=== PATIENT | female | born 1945 | race Caucasian/White ===

== ENCOUNTER → 2017-09-12 | Outpatient (CLI) | payer OTHER | LOC: RAD 12:59 | DX: R92.1 Mammographic calcification found on diagnostic imaging of breast (principal) ==

== ENCOUNTER → 2019-03-07 | Outpatient (CLI) | payer OTHER ==
[~2019-03-07] VITALS: Ht 157.5 cm; Wt 56.7 kg
[~2019-03-07] MED LIST: AMBIEN 5 MG TABL5 M1 PO; AMITRIPTYLINE H25 M2 PO; CALCIUM 500 +1 EAC5 PO; FOLIC ACID1 MG PO; LISINOPRIL-HCT1 EAC2 PO; METHOTREXATE 22.5 MG PO; NATURAL LUTEIN20 MG PO; SIMVASTATIN80 MG PO; TOPROL XL100 MG PO
--- NOTE | ~2019-03-07 | P ---
[facility] [place] [address] PROCEDURE REPORT Name: MYRNAMELANIGary CEDILLO Room #: REG [facility].#: [id number] Admission: 03/07/19 ������������������ Attend Phys: Rick Marti MD Discharge: ������������������ Date of : 41 Report #: [id number] THIS REPORT FOR: //name// CC: Rick Goodson OUTPATIENT COLONOSCOPY REPORT BRIEF HISTORY: The patient is a 73-year-old woman with a history of multiple colon adenomas. She previously has had 16 adenomas removed over time. She also has a history of breast cancer and had chemotherapy last year and had several episodes of colon infection per her report and she also reports what sounds like an episode of diverticular abscess that was managed nonsurgically. She presents for high-risk screening colonoscopy due to her history of adenomas and also due to history of colon infections and diverticulitis. PREOPERATIVE DIAGNOSIS: High-risk screening colonoscopy. POSTOPERATIVE DIAGNOSES: 1. Colon polyps. 2. Moderately severe diverticulosis coli, left colon. MEDICATIONS: Deep sedation with propofol per anesthesia. SPECIMENS: 1. Diminutive polyp, proximal transverse colon. 2. 5-6 mm flat polyp, distal transverse colon. ESTIMATED BLOOD LOSS: 3 mL. PROCEDURE: Colonoscopy to cecum and terminal ileum with snare polypectomy and biopsy. FINDINGS: Prior to propofol sedation, the procedure of colonoscopy discussed with the patient as well as potential risks and its complications. She indicates she understands and desires to proceed. DESCRIPTION OF PROCEDURE: With the patient in left lateral decubitus position, digital examination was completed, which revealed no abnormalities. Subsequently, the Olympus video colonoscope was introduced in the rectum, advanced under direct vision to the cecum. Done with minimal difficulty. The cecum was identified by the ileocecal valve and the appendiceal orifice. I was able to advance the scope across the ileocecal valve and visualize the distal segment of the terminal ileum, which was inspected and noted to be unremarkable. At that point, the scope was slowly withdrawn and careful circumferential views were obtained including retroflexing the scope in the ascending colon. Upon [facility] [address] [address] PROCEDURE REPORT Name: TERESE NORRIS Room #: REG [facility] Autumn.#: [id number] Admission: 03/07/19 ������������������ Attend Phys: Rick Marti MD Discharge: ������������������ Date of : 43 Report #: [id number] slow withdrawal of the scope, the prep was excellent. The mucosa was within normal limits, normal vascular pattern, normal light reflex. As we withdrew the scope, no abnormalities were noted until the proximal transverse colon was reached, at which point a diminutive polyp was seen and removed with biopsy forceps. The scope was further withdrawn and a flat 5-6 mm polyp in the distal transverse colon was seen and removed by cold snare polypectomy. Upon further withdrawal of the scope, no additional neoplastic lesions were seen. In the sigmoid colon, there was moderately severe diverticular disease without endoscopic evidence of diverticulitis. The scope was further withdrawn. No additional abnormalities were seen. Scope was withdrawn in the rectum. Upon retroflexion, small hemorrhoids were seen. Scope was withdrawn. The patient tolerated the procedure well. CONDITION OF THE PATIENT UPON DISCHARGE: Following procedure, the patient drowsy, aroused, conversant and will be discharged home when fully ambulatory. INSTRUCTIONS TO THE PATIENT AND FAMILY AT THE TIME OF DISCHARGE: We will follow up on the pathology for polyps. Lifetime polyp count to date is 16. I suspect these are both adenomas, which will increase her count to 18. She does have a history of breast cancer, but reports there is nothing unusual with regards to genetics regarding her breast cancer. There is no family history of colon cancer. She will otherwise follow up with Dr. Cathy Goodson and also Dr. Clif Barahona. ��������������������������������������������� ���������������������������������������� By: ��������������������������������������������� 0824 [id number] Rick Marti MD /nt
--- NOTE | 2019-03-10 16:05 | PATH ---
[facility] [address] [place] [address] PATHOLOGY RPT PROCEDURE Name: TERESE NORRIS Room #: REG Gregor Grajeda#: [id number] ������������������ Admission: 03/07/19 ������������������ Date of : 43 Discharge: Report #: [id number] Path Case #: [id number] [facility] Accession Number: [id number] . 01 Material submitted: . PART A: colon - BX POLYP AT PROXIMAL TRANSVERSE COLON. Modifiers: transverse, proximal PART B: colon - POLYP AT DISTAL TRANSVERSE COLON. Modifiers: transverse, distal . 01 Clinical history: . Pre-OP DX: Hx polyps, diverticulitis Post-OP DX: Diverticulosis, colon polyps . 02 Diagnosis: A. Polyp, at proximal transverse colon, endoscopic biopsy: - Tubular adenoma. - Negative for high-grade dysplasia. . B. Polyp, at distal transverse colon, endoscopic biopsy: - Tubular adenoma. - Negative for high-grade dysplasia. (IUV:pit 03/10/2019) QTP/03/10/2019 . 02 Electronically signed: . Kathy Dyson MD, Pathologist NPI- [id number] . 01 Gross description: . A. Received in formalin labeled "Terese Norris, BX polyp proximal transverse colon," is a single segment of carreno soft tissue measuring 0.5 cm in maximum dimension. The specimen is entirely submitted in cassette A1. . B. Received in formalin labeled "Terese Norris, polyp at distal transverse colon," is a single segment of carreno soft tissue measuring 0.9 cm in maximum dimension. The specimen is entirely submitted in cassette B1. (TSD; 03/07/2019) TOB/TOB . 02 Pathologist provided ICD-10: D12.3 . 02 CPT . 506077, 617657 Specimen Comment: A courtesy copy of this report has been sent to Specimen Comment: [phone], [place] [address] PATHOLOGY RPT PROCEDURE Name: TERESE NORRIS MONROE Room #: REG Gregor Grajeda#: [id number] ������������������ Admission: 03/07/19 ������������������ Date of : 43 Discharge: Report #: [id number] Path Case #: [id number] Specimen Comment: Report sent to / DR SABILLON Performed at: [address], [place], [place] [id number] MD Jeevan Villareal MD Phone: [phone] Performed at: [address] [id number] MD Kathy Dyson MD Phone: [phone]
== END | disposition home or self-care (01) ==
LOC: GI 06:27
DX: Z12.11 Encounter for screening for malignant neoplasm of colon (principal); Z86.010 Personal history of colon polyps; D12.3 Benign neoplasm of transverse colon; K57.30 Diverticulosis of large intestine without perforation or abscess without bleeding; I10 Essential (primary) hypertension; E78.5 Hyperlipidemia, unspecified; M06.9 Rheumatoid arthritis, unspecified; Z98.890 Other specified postprocedural states; Z87.891 Personal history of nicotine dependence; Z85.3 Personal history of malignant neoplasm of breast; Z79.899 Other long term (current) drug therapy
CPT/HCPCS: 62110; 62900

== ENCOUNTER → 2019-04-24 | Outpatient (CLI) | payer OTHER | LOC: MRI 09:29 | DX: M47.27 Other spondylosis with radiculopathy, lumbosacral region (principal); M51.17 Intervertebral disc disorders with radiculopathy, lumbosacral region; M51.16 Intervertebral disc disorders with radiculopathy, lumbar region ==

== ENCOUNTER → 2019-05-13 | Outpatient (CLI) | payer OTHER ==
[~2019-05-13] VITALS: Ht 154.9 cm; Wt 58.2 kg
[~2019-05-13] MED LIST changes: +ACETAMINOPHEN325 M1 PO; +ANASTROZOLE1 MG PO
[2019-05-13 10:33] VITALS: BP 125/76
--- NOTE | 2019-05-13 10:48 | NUR ---
Pain Clinic Assessment: 1. History of Osteoarthritis: B/L HANDS History of Rheumatoid Arthritis: B/L HANDS B/L FEET B/L SHOULDERS B/L KNEES 2. Height: 5 ft. 1 in. 154.9 cm. Weight: 128.4 lb. oz. 58.242 kg. Patient's BMI: 24.3 3. Vital Signs: BP: 125/76 Pulse: 71 Resp: 14 Temp: 02 Sat: 99 ECG Mon: 4. Pain Intensity: 6 5. Fall Risk: Dizziness: N Needs help standing or walking: N Fallen in the last 3 months: Y Fall risk comments: 6. Patient on Blood Thinner: None 7. History of Hypertension: Y 8. Opioid Therapy greater than 6 weeks: Opiate Contract Signed: 9. Risk Assessment Tool Provided: LOW RISK 10. Functional Assessment Tool: 11. Recreational Drug Use: Never Drug Type: Tobacco Use: Never Smoker Tobacco Type: Amount or Packs/day: How Many Years: Alcohol Use: No Frequency: Quant:
--- NOTE | 2019-05-20 08:12 | HPC ---
[facility] [address] [place] [address] PAIN MANAGEMENT CONSULTATION Name: TERESE NORRISZABETH Room #: REG [facility] Taras#: [id number] Admission: 05/13/19 ������������������ Attend Phys: Sunil Quershi DO Discharge: ������������������ Date of : 43 Report #: [id number] THIS REPORT FOR: //name// CC: Sunil Goodson DATE OF SERVICE: 05/13/2019 REFERRING PHYSICIAN: Yinka Calderon M.D. CHIEF COMPLAINT: Thoracolumbar pain. HISTORY OF PRESENT ILLNESS: As you know, the patient is a 73-year-old female who reports an acute onset of thoracolumbar pain beginning 10/12/2018. She is unable to provide any type of injury or trauma that may have led to symptom occurrence. She states her pain has progressively worsened. She trialed [id number] medications, stretching and rest and relaxation, believing her symptoms would improve spontaneously. When symptoms did not improve, she discussed further with her PCP her symptoms. They trialed conservative treatments, medication management, even physician-directed home physical therapy. Unfortunately, this did not seem to improve the patient's overall pain. She ultimately underwent MRI of the thoracic spine, which showed changes in the thoracolumbar area, consistent with the distribution of symptoms. She has no lumbar radicular component to her symptom presentation today. Presentation does appear to be along the thoracic distribution of approximately T10 on the left. She has been referred to our clinic to discuss options for treatment for this pain generator. The patient indicates pain is continuous, describes the pain as burning, cramping, aching, pulling, numbness and tingling. Places current pain score 6/10, daily average at 5-8/10 and the worst the pain has been is 8/10. The patient states standing, walking and doing certain activities exacerbate symptoms; sitting and lying down tends to improve pain. She has been referred to our service to discuss treatment options for suspected radiculopathy. PAST MEDICAL HISTORY: 1. Hypertension. 2. Chronic colon problems. 3. History of breast cancer. 4. Chronic sinus problems. 5. Insomnia. 6. Dyslipidemia. 7. Rheumatoid arthritis. PAST SURGICAL HISTORY: [facility] [address] [place] [address] PAIN MANAGEMENT CONSULTATION Name: TERESE NORRIS NGUYEN Room #: REG [facility].#: [id number] Admission: 05/13/19 ������������������ Attend Phys: Sunil Qureshi DO Discharge: ������������������ Date of : 43 Report #: [id number] 1. Sinus surgery x 3. 2. Right breast lumpectomy. SOCIAL HISTORY: The patient denies tobacco, IV or illicit drug use. Admits to 2 alcoholic beverages per day. She is retired, retired years ago. She is not receiving workmen's compensation nor is she trying to obtain disability benefits. She is unaccompanied at today's visit. REVIEW OF SYSTEMS: Positive for wearing corrective eyewear, rash and itching, left chest wall pain, left mid back pain, rheumatoid arthritis and hypertension. All other review of systems negative per 12-point review of systems, other than those listed in the history of present illness. Pain impact score 14 of 70, indicating mild interference with daily activities secondary to pain. ALLERGIES: No known drug allergies. CURRENT MEDICATIONS: Acetaminophen 325 mg 4 times a day; anastrozole 1 mg once a day; Lutein 20 mg once a day; methotrexate 2.5 mg, 15 mg per week; folic acid 1 mg per day; amitriptyline 25 mg p.o. at bedtime; simvastatin 80 mg per day; lisinopril/hydrochlorothiazide 20/25 one tab per day; metoprolol 100 mg per day and zolpidem 5 mg p.r.n. at bedtime. IMAGING DATA: MRI of the lumbar spine obtained 04/24/2019 shows diffuse spondylosis and disk space narrowing noted in the thoracolumbar area. There is a left paracentral disk protrusion at T9-T10, without significant overall central canal impingement. It does cause minimal left foraminal stenosis with broad-based disk protrusion at L1-L2, mild on the right, minimal left; moderate posterior facet degenerative changes noted at L3-L4; minimal disk bulging at L4-L5; posterior facet arthropathy changes and no impingement seen on the canal. There is neural foraminal stenosis at this level, classifies mild to moderate; moderate facet arthropathy change and moderate bilateral neural foraminal stenosis at L5-S1. PQRS REVIEW: The patient has known osteoarthritic changes of the bilateral hands. She is suffering from rheumatoid arthritis involving hands, feet, shoulders, knees and hips. The patient is placing pain score at 6/10. She is not a fall risk, but has recently had a fall apparently tripping over objects at home. She has rectified this problem by cleaning pathways. She is not on blood thinners, but is treated for hypertension. She is not on any chronic opioids. She has a reported low opioid addiction based on our addiction potential protocol. She is placing pain impact score of 14/70, mild interference with daily activities secondary to pain. PHYSICAL EXAMINATION: [facility] [address] [place] [address] PAIN MANAGEMENT CONSULTATION Name: TERESE NORRIS Room #: REG MARCIAL Grajeda#: [id number] Admission: 05/13/19 ������������������ Attend Phys: Sunil Qureshi DO Discharge: ������������������ Date of : 43 Report #: [id number] VITAL SIGNS: Blood pressure 125/76, pulse 71 and respiratory rate 14 and unlabored. The patient is 99% on room air. Height 5 feet 1 inch tall, weight 128.4 pounds and BMI calculated 24.3. GENERAL: Well-developed, well-nourished and well-hydrated 73-year-old female, appearing her stated age. Pain is rated around 6/10. HEENT: Normocephalic, atraumatic. Pupils equal, round and reactive to light. Extraocular muscles are intact. Sclerae nonicteric, without injection. NEUROLOGIC: Cranial nerves 2-12 are grossly intact. Speech fluent. The patient deemed a good historian. LUNGS: Clear. No wheezes, rhonchi or rales. CARDIOVASCULAR: Regular. No appreciable gallop. No rub. ABDOMEN: Soft, nontender and nondistended. Normoactive bowel sounds. EXTREMITIES: Show no clubbing, no cyanosis and no edema. There are mild gross deformities of the hands noted on physical exam. MUSCULOSKELETAL: The patient has palpatory tenderness over the thoracolumbar area. Deep palpation of the area causes slight intensification of pain with more rightward positioning. Deep inhalation and exhalation is causing no change in overall pain. Seated straight leg raising negative. Supine straight leg raising negative. Karla's test negative. Modified Gaenslen's positive for axial low back pain. Ankle clonus negative. Babinski is negative. She is intact to light touch from T1 through T12 and L1 through S1 dermatomes. There are no rashes, lesions, or ulcerations overlying the distribution of pain, concerning of herpes zoster. Provocation testing such as extension, rotation and lateral flexion do not seem to change overall pain. ASSESSMENT: 1. Thoracic radiculopathy. 2. Displacement of the thoracic disk. 3. Facet arthropathy of the lumbar spine. 4. Lumbosacral spondylosis, without radicular symptoms. 5. Chronic intractable pain. PLAN: 1. Based on today's physical exam, history the patient has provided, the description the patient uses in regards to pain as well as location of symptoms radiating to what appears to be the T10 dermatome on the left leg, source of the patient's pain is thoracic radiculopathy. The patient and I discussed at length today treatment options for thoracic radiculopathy. The treatment options would include the following: We discussed physical therapy, stretching exercise and core strengthening as a treatment course. This will improve the patient's overall mobility and potentially improve overall pain. We discussed medication management, utilizing escalating doses of neuropathic pain medication to attempt to control symptoms. We would have to watch for side effects of this medication, including somnolence, decrease in mental acuity, disorientation, [place] [address] PAIN MANAGEMENT CONSULTATION Name: MYRNASWAPNILJNO CEDILLO Room #: REG MARCIAL Grajeda#: [id number] Admission: 05/13/19 ������������������ Attend Phys: Sunil Qureshi DO Discharge: ������������������ Date of : 43 Report #: [id number] slowing. We discussed the requested epidural injection to address thoracic radiculopathy. We also discussed surgical options. After reviewing risks and benefits of all proposed treatment options, the patient chose to begin with a thoracic epidural injection. The patient has been advised of the risks and benefits of a thoracic epidural injection. These risks include, but are not necessarily limited to bleeding, bruising, infection, worsening pain, no relief of pain, also risk of temporary or permanent muscle weakness, temporary or permanent nerve damage, possible paralysis, post-dural puncture headache osteoporotic changes and . The patient states understood and wished to proceed. 2. No medication changes made at today's visit. The patient will continue current medical therapy as prescribed by her PCP. 3. We will see the patient back in followup visit in approximately one month. At that time, we will review the efficacy of today's thoracic epidural injection and determine if the next in the series might be recommended. We wish to thank Dr. Calderon for the referral of the patient to our clinic. We will keep you apprised of her response to treatment as we address thoracic radiculopathy. Again, we wish to thank you for the opportunity to see the patient in consultation. PROCEDURE NOTE PROCEDURE: Thoracic epidural injection under fluoroscopic guidance. DESCRIPTION OF PROCEDURE: After obtaining written consent, the patient was taken back to the fluoroscopy suite, placed in a prone position with a pillow under the thoracolumbar junction to improve thoracic kyphosis and reduce the lumbar lordosis. Skin overlying the lumbosacral area was then prepped and draped in aseptic fashion. A 27-gauge 1-1/4 inch needle was then used to anesthetize the skin and subcutaneous tissue directly overlying the site of injection. A 20-gauge 3-1/2 inch Tuohy needle was advanced under fluoroscopic guidance towards the epidural space using a left paramedian approach. Epidural space was identified using loss of resistance to air technique. After negative aspiration for heme or cerebrospinal fluid, 1 mL of Omnipaque injected. A thoracic epidurogram was confirmed using both AP and lateral fluoroscopy. After negative aspiration for heme or cerebrospinal fluid, 5 mL of a solution containing 2 mL 40 mg per mL, 80 mg total triamcinolone along with 3 mL of 1% lidocaine was injected slowly. Needle then retracted shelter, flushed with 1 mL of 1% lidocaine and then removed. Sterile bandage placed over the injection site. No new motor deficits present in the lower extremities following the procedure. [facility] [address] [place] [address] PAIN MANAGEMENT CONSULTATION Name: TERESE NORRIS Room #: REG CLGregor Grajeda#: [id number] Admission: 05/13/19 ������������������ Attend Phys: Sunil Qureshi DO Discharge: ������������������ Date of : 43 Report #: [id number] The patient tolerated the procedure well, carefully escorted to recovery room in stable condition. No apparent complications. After meeting discharge criteria, the patient discharged home. ��������������������������������������������� <ELECTRONICALLY SIGNED> ���������������������������������������� By: Sunil Qureshi DO ��������������������������������������������� 05/20/19 0812 1035 [id number] Sunil Qureshi DO /nt
--- NOTE | 2019-05-27 07:48 | HPC ---
[facility] [address] [place] [address] PAIN MANAGEMENT CONSULTATION Name: MYRNATERESE GARCIAZABETH Room #: REG [facility] Autumn.#: [id number] Admission: 05/13/19 ������������������ Attend Phys: Sunil Qureshi DO Discharge: ������������������ Date of : 41 Report #: [id number] THIS REPORT FOR: //name// CC: Sunil Goodson DATE OF SERVICE: 05/13/2019 CHIEF COMPLAINT: Thoracolumbar pain. HISTORY OF PRESENT ILLNESS: As you know, the patient is a 73-year-old female who reports acute onset of thoracic and lumbar pain that began on 10/12/2018. The patient is unable to provide any injury or trauma that may have led to symptom occurrence. She states her pain has progressively worsened. She trialed conservative treatment initially, trying [id number] medications, rest, relaxation and some light stretching. Unfortunately, this did not improve the patient's pain. She sought further evaluation through her primary care physician who DICTATION ENDS HERE ��������������������������������������������� <ELECTRONICALLY SIGNED> ���������������������������������������� By: Sunil Qureshi DO ��������������������������������������������� 05/27/19 0748 1023 1101 Sunil Qureshi DO /nt
== END | disposition home or self-care (01) ==
LOC: PAIN 06:56
DX: M51.14 Intervertebral disc disorders with radiculopathy, thoracic region (principal); M47.26 Other spondylosis with radiculopathy, lumbar region; M47.817 Spondylosis without myelopathy or radiculopathy, lumbosacral region; G89.29 Other chronic pain

== ENCOUNTER → 2019-07-08 | Outpatient (CLI) | payer OTHER ==
[~2019-07-08] VITALS: Ht 154.9 cm; Wt 57.8 kg
[2019-07-08 10:08] VITALS: BP 123/67
--- NOTE | 2019-07-08 10:20 | NUR ---
Pain Clinic Assessment: 1. History of Osteoarthritis: B/L HANDS History of Rheumatoid Arthritis: B/L HANDS B/L FEET B/L SHOULDERS B/L KNEES 2. Height: 5 ft. 1 in. 154.9 cm. Weight: 127.4 lb. oz. 57.788 kg. Patient's BMI: 24.1 3. Vital Signs: BP: 123/67 Pulse: 73 Resp: 14 Temp: 02 Sat: 100 ECG Mon: 4. Pain Intensity: 5 5. Fall Risk: Dizziness: N Needs help standing or walking: N Fallen in the last 3 months: N Fall risk comments: 6. Patient on Blood Thinner: None 7. History of Hypertension: Y 8. Opioid Therapy greater than 6 weeks: Y Opiate Contract Signed: 9. Risk Assessment Tool Provided: LOW RISK 10. Functional Assessment Tool: 11. Recreational Drug Use: Never Drug Type: Tobacco Use: Never Smoker Tobacco Type: Amount or Packs/day: How Many Years: Alcohol Use: No Frequency: Quant:
--- NOTE | 2019-07-15 11:15 | HPC ---
[facility] [place] [address] PAIN MANAGEMENT CONSULTATION Name: TERESE NORRIS [facility] #: [facility] [id number] Admission: 07/08/19 Attend Phys: Sunil Qureshi DO Discharge: Date of : 41 Report #: [id number] THIS REPORT FOR: //name// CC: Sunil Goodson DATE OF SERVICE: 07/08/2019 CHIEF COMPLAINT: Thoracolumbar pain. HISTORY OF PRESENT ILLNESS: As you know, the patient is a 74-year-old female who reports acute onset of thoracolumbar pain beginning 10/12/2018. She denied any injury or trauma that may have led to symptom development. She was seen in consultation per the request of Dr. Calderon to undergo thoracic epidural injection under fluoroscopic guidance. She underwent the first in a series of thoracic epidural injection 05/13/2019. She returns today in followup visit with recurrence of pain, denying any new injury or trauma that may have led to symptoms recurrence. She is placing pain score 5/10. Previous injection according to the patient provided 80% improvement in overall pain. She returns today to build on success of previous intervention. The patient indicates today pain is continuous, burning, cramping, aching, pulling, tingling; exacerbated with sitting and standing, improves with activities and recent thoracic epidural injection. Pain rated at 5/10. ALLERGIES: No known drug allergies. CURRENT MEDICATIONS: Zolpidem, metoprolol, lisinopril, hydrochlorothiazide, simvastatin, amitriptyline, folic acid, methotrexate, Lutein, anastrozole and Tylenol. SOCIAL HISTORY: The patient denies tobacco, alcohol, IV or illicit drug use. She is retired. She is unaccompanied today. IMAGING: No new imaging available. PQRS: The patient has known osteoarthritic changes of the bilateral hands, mild in the shoulders. She is suffering from rheumatoid arthritis involving the hands, feet, shoulders and knees. She is placing pain intensity 5/10. She is not a fall risk, has not had a fall in last 3 months. She is not on blood thinners, but is treated for hypertension. She is on chronic opioids with a low opioid addiction potential. Pain impact score 14 of 70, mild interference of daily activities secondary to pain. PHYSICAL EXAMINATION: VITAL SIGNS: Blood pressure 123/67, pulse 73, respiratory rate 14 and [facility] [address] [address] PAIN MANAGEMENT CONSULTATION Name: TERESE NORRIS [facility] #[facility] [id number] Admission: 07/08/19 Attend Phys: Sunil Qureshi DO Discharge: Date of : 43 Report #: [id number] unlabored. The patient is 100% on room air. Height 5 feet 1 inch tall, weight 127.4 pounds, BMI calculated 24.1. GENERAL: Well-developed, well-nourished, well-hydrated, 74-year-old female appearing stated age, pain is rated today 5/10. HEENT: Normocephalic, atraumatic. Pupils equal, round, reactive to light. EXTREMITIES: Show no clubbing, no cyanosis, and no edema. MUSCULOSKELETAL: Upper extremity strength symmetrical 5/5 as is lower extremity strength 5/5. Deconditioning noted bilaterally. Deep inhalation and exhalation causes no change in overall pain. Deep palpation over the thoracolumbar area causes slight intensification of pain with what appears to be rightward distribution of symptoms. She is intact to light touch from T1-T12 dermatomes, again from L1 through S2 dermatomes. ASSESSMENT: 1. Thoracic radiculopathy. 2. Displacement of thoracic intervertebral disk. 3. Facet arthropathy of the thoracolumbar spine. 4. Lumbosacral spondylosis without radicular symptoms. 5. Chronic intractable pain. PLAN: 1. The patient has returned today in followup visit having noted 80% improvement in overall pain with the thoracic epidural injection provided at last visit. Unfortunately, her symptoms have begun to return. She is now placing pain score 5/10. She returns today to undergo next in the series of thoracic epidural injections in hopes of building on success of previous intervention. The patient has been advised risks and benefits of the procedure, states understood, and wished to proceed. 2. No medication changes made at today's visit. The patient will continue current medical therapy as previously prescribed. 3. We will see the patient back in followup visit on an as needed basis for possible next in the series of thoracic epidural injections. PROCEDURE NOTE DESCRIPTION OF PROCEDURE: T8-T9 thoracic epidural injection under fluoroscopic guidance. After obtaining written consent, the patient was taken back to fluoroscopy suite, placed in prone position with pillow under the thoracolumbar junction to improve thoracic kyphosis and reduce lumbar lordosis. Skin overlying the lumbosacral area then prepped and draped in aseptic fashion. A 27-gauge 1-1/4 inch needle was then used to anesthetize skin and subcutaneous tissue with 2 mL of 1% lidocaine. A 20-gauge 3-1/2 inch Tuohy needle advanced under fluoroscopic guidance towards [address] [address] PAIN MANAGEMENT CONSULTATION Name: TERESE NORRIS Room #: REG MARCIAL Grajeda#: [id number] Admission: 07/08/19 Attend Phys: Sunil Qureshi DO Discharge: Date of : 43 Report #: [id number] the epidural space using left paramedian approach. Epidural space identified using loss of resistance to air technique. After negative aspiration for heme or cerebrospinal fluid, 1 mL of Omnipaque injected. A thoracic epidurogram was confirmed using both AP and lateral fluoroscopy. After negative aspiration for heme or cerebrospinal fluid, 5 mL of solution containing 2 mL 40 mg per mL, 80 mg total triamcinolone, 3 mL lidocaine 1% injected slowly. Needle then retracted approximately half way, flushed with 1 mL of 1% lidocaine and then removed. Sterile bandage placed over injection site. There were no new motor deficits present in the upper or lower extremities following procedure. The patient tolerated procedure well, carefully escorted to recovery room in stable condition. No apparent complications. After meeting discharge criteria, the patient discharged home. <ELECTRONICALLY SIGNED> By: Sunil Qureshi DO 07/15/19 1115 [id number] Sunil Qureshi DO /nt
== END | disposition home or self-care (01) ==
LOC: PAIN 06:51
DX: M51.14 Intervertebral disc disorders with radiculopathy, thoracic region (principal); M12.88 Other specific arthropathies, not elsewhere classified, other specified site; M47.27 Other spondylosis with radiculopathy, lumbosacral region; G89.29 Other chronic pain; M06.9 Rheumatoid arthritis, unspecified; Z79.899 Other long term (current) drug therapy

== ENCOUNTER → 2019-08-19 | Outpatient (CLI) | payer OTHER ==
[~2019-08-19] VITALS: Ht 154.9 cm; Wt 49.4 kg
[~2019-08-19] MED LIST changes: +NABUMETONE 500500 M1 PO; +ULTRAM 50MG TAB50 MG PO
[2019-08-19 13:02] VITALS: BP 152/71
--- NOTE | 2019-08-19 13:05 | NUR ---
Pain Clinic Assessment: 1. History of Osteoarthritis: B/L HANDS History of Rheumatoid Arthritis: B/L HANDS B/L FEET B/L SHOULDERS B/L KNEES 2. Height: 5 ft. 1 in. 154.9 cm. Weight: 109.0 lb. oz. 49.442 kg. Patient's BMI: 20.6 3. Vital Signs: BP: 152/71 Pulse: 77 Resp: 18 Temp: 02 Sat: 98 ECG Mon: 4. Pain Intensity: 8 5. Fall Risk: Dizziness: N Needs help standing or walking: N Fallen in the last 3 months: Y Fall risk comments: 6. Patient on Blood Thinner: None 7. History of Hypertension: Y 8. Opioid Therapy greater than 6 weeks: Y Opiate Contract Signed: 9. Risk Assessment Tool Provided: LOW RISK 10. Functional Assessment Tool: 11. Recreational Drug Use: Never Drug Type: Tobacco Use: Never Smoker Tobacco Type: Amount or Packs/day: How Many Years: Alcohol Use: Yes Frequency: Daily Quant: 2 DRINKS NIGHTLY.VODKA.
--- NOTE | 2019-09-02 07:57 | HPC ---
[facility] [place] [address] [place] [address] PAIN MANAGEMENT CONSULTATION Name: TERESE NORRIS Room #: REG [facility] [id number] Admission: 08/19/19 Attend Phys: Sunil Qureshi DO Discharge: Date of : 43 Report #: [id number] THIS REPORT FOR: //name// CC: Sunil Lotta Hamzah DATE OF SERVICE: 08/19/2019 CHIEF COMPLAINT: Recurrent thoracic pain. HISTORY OF PRESENT ILLNESS: As you know, the patient is a 74-year-old female, referred to our clinic for thoracolumbar pain, seen 05/13/2019 per the request of Dr. Yinka Calderon, the referring physician. She was advised of treatment options and underwent a thoracic epidural injection under fluoroscopic guidance at that visit. She reports initial improvement in pain, allowing her stand for long periods of time and be able to go about majority of activities of daily living. Unfortunately, her symptoms remain at level of 8/10. She states her pain is continuous, burning, cramping, aching, pulling and tingling, exacerbated with standing, sitting, improves with activity. She returns today in followup visit to discuss treatment options for ongoing thoracolumbar symptoms. The patient denies any new injury or trauma. ALLERGIES: No known drug allergies. CURRENT MEDICATIONS: Acetaminophen 325 mg 4 times a day, anastrozole 1 mg once a day, Lutein 20 mg per day, methotrexate 2.5 mg dose 15 mg per week, folic acid 1 mg per day, amitriptyline 25 mg p.o. at bedtime, simvastatin 80 mg per day, lisinopril/hydrochlorothiazide 20/25 one tab per day, metoprolol 100 mg per day, zolpidem 5 mg p.o. at bedtime. SOCIAL HISTORY: The patient denies tobacco, IV or illicit drug use. Admits to 2 alcohol beverages per day. She is retired, retired 8 years ago, unaccompanied today. IMAGING: No new imaging available. PQRS: The patient has arthritic changes of bilateral hands. She does suffer from rheumatoid arthritis affecting hands, feet, shoulders and knees. She is placing current pain score at 8/10. She is not a fall risk, but recently had a fall, tripping over objects at home. She is on blood thinners. She is on chronic opioids, but does have a low risk for opioid addiction, placing impact of pain at 14/70, mild interference. PHYSICAL EXAMINATION: VITAL SIGNS: Blood pressure 152/71, pulse 77, respiratory rate [address] [address] PAIN MANAGEMENT CONSULTATION Name: TERESE NORRIS Room #: REG [facility] M.R.#: [id number] Admission: 08/19/19 Attend Phys: Sunil Qureshi DO Discharge: Date of : 41 Report #: [id number] unlabored. The patient is 98% on room air. Height 5 feet 1 inch tall, weight 109 pounds, BMI calculated 20.6. GENERAL: Well-developed, well-nourished, well-hydrated 74-year-old female, appearing stated age, placing current pain score at 8/10. HEENT: Head is normocephalic, atraumatic. Pupils equal, round, reactive to light. EXTREMITIES: Show no clubbing, no cyanosis, and no edema. MUSCULOSKELETAL: Once again, the patient has palpatory tenderness over the thoracolumbar area. Deep palpation in area causes intensification of pain that is more on the right. Deep inhalation and exhalation causes no change in pain. She is intact to light touch from T1 through T12 and L1 through L5 dermatomes. Significant paraspinal muscle tenderness. No rashes, lesions or ulcerations. ASSESSMENT: 1. Chronic thoracic radiculopathy. 2. Displacement of thoracic intervertebral disk. 3. Myofascial pain. 4. Facet arthropathy of the lumbar spine. PLAN: 1. The patient returns today in followup visit having only noted transient improvement in symptoms with the thoracic injection. We would not recommend continuing this treatment option given the risks of the procedure without significant benefits. The patient is agreeable and wishes to trial another course of treatment. We recommend medication management to determine if this can improve symptoms. If this is ineffective, then surgical options may be necessary. The patient is agreeable. 2. The patient was provided a prescription of nabumetone 500 mg dose 1 tab p.o. t.i.d. I have given the patient a short dosing of the medication to trial over the next week to help reduce the inflammatory process. We are trialing the medication initially to determine if she can tolerate the medication and whether or not she gains benefit. If she does see good improvement in symptoms, further prescriptions can be provided by us or her PCP. She will watch for dyspepsia, worsening of blood pressure, lower extremity edema with use. If she notes any of these side effects, discontinue immediately. 3. We have provided the patient a prescription of tramadol 50 mg dose 1 tab p.o. q.i.d. I have given the patient #60 tablets. This is a trial of medication to determine if she sees improvement with this therapy and no side effects. She was given the medication with the understanding that side effects would include somnolence, decreased mental acuity, disorientation, confusion, mental slowing and possibly even some constipation. She will watch for the side effects. 4. The patient will contact our clinic after a week of trying medication to determine if this is effective treatment. If not effective, then we will look [facility] [place] [place] [address] [place] [address] PAIN MANAGEMENT CONSULTATION Name: TERESE NORRIS Room #: REG Gregor Grajeda#: [id number] Admission: 08/19/19 Attend Phys: Sunil Qureshi DO Discharge: Date of : 41 Report #: [id number] to make some adjustments in her therapy versus have the patient return to PCP for referral to surgery. <ELECTRONICALLY SIGNED> By: Sunil Qureshi DO 09/02/19 [id number] Sunil Qureshi DO /nt
== END ==
LOC: PAIN 06:52
DX: M51.14 Intervertebral disc disorders with radiculopathy, thoracic region (principal); M12.88 Other specific arthropathies, not elsewhere classified, other specified site; M79.18 Myalgia, other site